=== PATIENT | female | born 1990 | race Asian ===

== ENCOUNTER → 2019-04-11 | Outpatient (CLI) | payer OTHER | LOC: COL.RAD 08:15 | DX: R11.0 Nausea (principal); R10.9 Unspecified abdominal pain; R13.10 Dysphagia, unspecified | CPT/HCPCS: A9541 ==

== ENCOUNTER → 2019-12-12 | Outpatient (CLI) | payer OTHER | LOC: COL.RAD 10:16 | DX: R10.2 Pelvic and perineal pain (principal); R14.0 Abdominal distension (gaseous) ==